=== PATIENT | male | born 1990 | race Caucasian/White ===

== ENCOUNTER 2017-12-27 14:12 | Emergency (ER) | payer OTHER ==
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
[2017-12-27 14:25] VITALS: BP 138/98
== END 2017-12-27 14:43 | disposition home or self-care (01) ==
LOC: ER 14:38
DX: F41.9 Anxiety disorder, unspecified (principal); V48.6XXA Car passenger injured in noncollision transport accident in traffic accident, initial encounter
CPT/HCPCS: 99281